=== PATIENT | female | born 1975 | race Two or more races ===

== ENCOUNTER → 2020-02-02 08:16 | Outpatient (BNV) | payer MEDICAID, SELFPAY ==
--- NOTE | 2020-02-02 08:16 | PT.ODS1RPT ---
PT OP Progress/Discharge Note Date of Service: February 02, 2020 Progress Note/DC Note Progress Note/Discharge Note: DC Note Patient Information Pediatric or Adult Patient: Adult PT >13 Visit Reasons: Amb Documentation Medical Diagnosis: encounter for orthopedic fx
--- NOTE | 2020-02-02 09:42 | PT.ODAYNRPT ---
PT Outpatient Daily Note Date of Service: February 02, 2020 OP Daily Note Pediatric or Adult Patient: Adult PT >13 Visit Reasons: Amb Documentation Outpatient Physical Therapy Treatment Date: 02/02/20 Subjective: Patient mentioned that she has pain mainly in the back of her knee. Objective: pls see FS Assessment: Patient were given strengthening ex on BLE, with the same level as it was last time due to patient was not seen for 1month due to waiting for authorization. Patient complains of pain on the back of her knee. Patient was advised to let MD know about her pain and crepitus. Plan: to continue POC toward goals Pain Present Currently: Yes Length of Time (minutes) of Treatment: 30 Minutes

== ENCOUNTER → 2025-08-24 | Outpatient (CLI) | payer MEDICAID, SELFPAY ==
--- NOTE | 2025-08-24 07:15 | XR_ITS ---
Examination: Screening digital mammography, bilateral Computer aided detection 3-D breast Tomosynthesis, bilateral Date and time of exam: August 24, 2025, 0712 hours, compared to mammograms dating to 08/12/2017 Indication: Screening Technique: Nonmagnified MLO, CC views of the breasts to been obtained, reconstructed from 3-D Tomosynthesis images. R2 computer aided detection program utilized for evaluation of suspicious masses and/or abnormal calcifications. 3-D Tomosynthesis images obtained. Findings: Scattered areas of fibroglandular density. Benign calcifications. 3 mm circumscribed nodule outer left breast IMPRESSION: BI-RADS Category 0: Incomplete: Need additional imaging evaluation Recommend follow-up spot tomographic views of the 3:00 nodule left breast 3 mm as well as left breast sonography to complete the work-up
== END | disposition home or self-care (01) ==
LOC: CDIM 06:48
PROVIDERS: PCP Physician Assistant; Referring Provider Physician Assistant; Visit Provider Physician Assistant
DX: Z12.31 Encounter for screening mammogram for malignant neoplasm of breast (principal); N63.25 Unspecified lump in the left breast, overlapping quadrants; R92.8 Other abnormal and inconclusive findings on diagnostic imaging of breast
CPT/HCPCS: 77063; 77067